=== PATIENT | female | born 1975 | race Two or more races ===

== ENCOUNTER 2019-09-02 17:54 | Emergency (ER) | payer OTHER ==
[~2019-09-02] VITALS: Ht 162.6 cm; Wt 86.4 kg
[2019-09-02] MEDS ORDERED: ESCI10TA PO (18:13)
[2019-09-02] MEDS ORDERED: ACETAMINOPHEN 500 MG TABLET PO ONE (18:30)
[2019-09-02 19:53] VITALS: BP 111/64
== END 2019-09-02 19:56 | disposition home or self-care (01) ==
LOC: EMS 17:57
DX: S20.212A Contusion of left front wall of thorax, initial encounter (principal); F41.9 Anxiety disorder, unspecified; F12.90 Cannabis use, unspecified, uncomplicated; V49.9XXA Car occupant (driver) (passenger) injured in unspecified traffic accident, initial encounter; Y93.89 Activity, other specified; Y92.89 Other specified places as the place of occurrence of the external cause; Y99.8 Other external cause status